=== PATIENT | male | born 1955 | race Caucasian/White ===

== ENCOUNTER 2019-09-02 08:28 | Day surgery (SDC) | payer OTHER ==
[2019-08-25 15:28] LABS: BASOPHILS # (AUTO) 0.1 X10'3 (0-0.2); BASOPHILS % (AUTO) 1.2 % (0-1); EOSINOPHILS # (AUTO) 0.1 X10'3 (0-0.9); EOSINOPHILS % (AUTO) 0.5 % (0-6); LYMPHOCYTES # (AUTO) 2.6 X10'3 (1.1-4.8); LYMPHOCYTES % (AUTO) 26.1 % (21-51); MEAN CORPUSCULAR HEMOGLOBIN 30.9 PG (27.0-31.0); MEAN CORPUSCULAR HGB CONC 34.3 g/dL (33.0-36.5); MEAN PLATELET VOLUME 8.1 FL (7.4-10.4); MONOCYTES # (AUTO) 0.8 X10'3 (0-0.9); MONOCYTES % (AUTO) 7.9 % (2-12); NEUTROPHILS # (AUTO) 6.4 X10'3 (1.8-7.7); NEUTROPHILS % (AUTO) 64.3 % (42-75); PRE OP HEMATOCRIT 44.7 % (42.0-52.0); PRE OP HEMOGLOBIN 15.3 g/dL (14.0-17.9); PRE OP PLATELET COUNT 293 X10'3 (140-440); RED BLOOD COUNT 4.96 X10'6 (4.70-6.10); RED CELL DISTRIBUTION WIDTH 13.7 % (11.5-14.5)
[2019-08-25 15:41] LABS: ALBUMIN 3.9 G/DL (3.4-5.0); ALKALINE PHOSPHATASE 79 IU/L (46-116); BLOOD UREA NITROGEN 11 MG/DL (7-18); BUN/CREATININE RATIO 11.5 (5.4-32.0); CALCIUM 9.3 MG/DL (8.5-10.1); CHLORIDE 104 MMOL/L (99-107); CREATININE 0.96 MG/DL (0.60-1.10); PRE OP ALT 36 U/L (30-65); PRE OP ANION GAP 10 (8-16); PRE OP AST 20 U/L (10-37); PRE OP BILIRUB, TOTAL 0.3 MG/DL (0.0-1.0); PRE OP GLUCOSE 124 MG/DL (70-104); PRE OP POTASSIUM 4.1 MMOL/L (3.4-5.1); PRE OP SODIUM 142 MMOL/L (135-145); TOTAL CARBON DIOXIDE 28.2 MMOL/L (24-32); TOTAL PROTEIN 7.8 G/DL (6.4-8.2); eGFR 79 ML/MIN
[~2019-09-02] VITALS: Ht 175.3 cm; Wt 94.1 kg
[2019-09-02] VITALS (22 sets, daily range): BP systolic 116–156; BP diastolic 68–92
[~2019-09-02 08:28] MED LIST: IBUP-24 PO; OMEP40CA13 PO; albuterol 2.5 MG/3 ML nebule NEB ONE; ceFAZolin/D5W- 1GM premix 50 ML IV ONE; famotidine 20mg tablet PO ONE; ringers solution, lacted 1,000 ML IV SCH
[2019-09-02] MEDS ORDERED: epiNEPHrine 1 mg/ml 30ml MDV ONE (09:40)
[2019-09-02] MEDS ORDERED: neostigmine methylsulfate 1 MG/ML 10ml vial ONE (11:06)
[2019-09-02] MEDS ORDERED: sevoflurane 250ml liquid IH ONE (11:06)
[2019-09-02] MEDS ORDERED: glycopyrrolate 0.2mg/ml inj ONE (11:06)
[2019-09-02] MEDS ORDERED: ondansetron/PF 4mg/2ml inj ONE (11:06)
[2019-09-02] MEDS ORDERED: fentaNYL/PF 50MCG/1 ML 2ML syringe ONE (11:12)
[2019-09-02] MEDS ORDERED: MIDAZolam 5mg/5ml vial ONE (11:14)
[2019-09-02] MEDS ORDERED: propofol inj 20 ML IV ONE (11:29)
[2019-09-02] MEDS ORDERED: rocuronium 10mg/ml inj IV ONE (11:29)
[2019-09-02] MEDS ORDERED: ROPIVAcaine 0.5% (5mg/ml) 30ml vial ONE (11:29)
[2019-09-02] MEDS ORDERED: ceFAZolin 1000mg inj ONE ×2 (11:29→11:45)
[2019-09-02] MEDS ORDERED: LIDOcaine 1%/PF 5ML 10 MG/ML VIAL ONE (11:30)
[2019-09-02] MEDS ORDERED: dexamethasone sod phosphate 4mg/ml inj. ONE (11:37)
[2019-09-02] MEDS ORDERED: BUPIVAcaine/PF 2.5mg/ml (0.25%) 10ml vial ONE (11:45)
[2019-09-02] MEDS ORDERED: ringers solution, lacted 1,000 ML IV SCH (12:23)
[2019-09-02] MEDS ORDERED: ondansetron/PF 4mg/2ml inj IV PRN (12:25)
[2019-09-02] MEDS ORDERED: proCHLORperazine 10 MG/2 ml inj IV PRN (12:25)
[2019-09-02] MEDS ORDERED: meperidine/PF 25mg/ml syringe IV PRN ×3 (12:25)
[2019-09-02] MEDS ORDERED: morphine 4 MG/ML inj SYRINge IV PRN ×2 (12:25)
[2019-09-02] MEDS ORDERED: meperidine/PF 50mg/ml syringe ONE (13:03)
--- NOTE | 2019-09-02 13:13 | NUR ---
Received from OR via [facility], accompanied by Anesthesiologist DR PHIPPS and report given by Anesthesiologist. PT DROWSY, DENIES PAIN, RIGHT SHOULDER W/DRSG W/SMALL AMT OF S/S DRAINAGE ON DRSG, ARM IN SLING, PT W/SENSATION, ABLE TO WIGGLE FINGERS. Addendum: 09/02/19 at 1345 by Jessie Mena RN Amended: Links added.
[2019-09-02] MEDS ORDERED: ipratropium/albuterol 3ml nebule IH ONE (13:15)
[2019-09-02] MEDS ORDERED: albuterol 2.5 MG/3 ML nebule NEB ONE (15:40)
--- NOTE | 2019-09-02 16:33 | NUR ---
INCENTIVE SPIROMETER GIVEN TO PT WHO DEMONSTRATES ABILITY TO USE PROPERLY, SENT HOME W/PT. PTS 02 SATS 92-93% AFTER BREATHING TX, DR PIHPPS AND DR DEAN AWARE, OK TO D/C PT TO HOME, D/C INSTRUCTIONS GIVEN AND GONE OVER W/PT WHO VERBALIZES UNDERSTANDING, PT D/CD TO HOME W/BELONGINGS VIA W/C TO PRIVATE VEHICLE W/O INCIDENT. Addendum: 09/02/19 at 1648 by Jessie Mena RN Amended: Links added.
== END 2019-09-02 16:33 | disposition home or self-care (01) ==
LOC: PAS 08:28
PROVIDERS: ATTEND Orthopaedic Surgery
DX: S43.431A Superior glenoid labrum lesion of right shoulder, initial encounter (principal); M75.41 Impingement syndrome of right shoulder; M19.011 Primary osteoarthritis, right shoulder; M65.811 Other synovitis and tenosynovitis, right shoulder; K21.9 Gastro-esophageal reflux disease without esophagitis; G89.18 Other acute postprocedural pain; F17.210 Nicotine dependence, cigarettes, uncomplicated; R06.02 Shortness of breath; Z79.899 Other long term (current) drug therapy; X58.XXXA Exposure to other specified factors, initial encounter; Y93.89 Activity, other specified; Y92.89 Other specified places as the place of occurrence of the external cause; Y99.8 Other external cause status
CPT/HCPCS: 23430; 29822; 29824; 29826; 36415; 64415; 71046; 80053; 82948; 85025; 93005; 94640; C1713; J0171; J0690; J1100; J2175; J2250; J2405; J2704; J2710; J3010; J3490; J7120; A4215; A4565; A4618; A6258; A7000; J2795